=== PATIENT | female | born 1945 | race Caucasian/White ===

== ENCOUNTER 2017-04-18 10:49 | Day surgery (SDC) | payer MEDICARE, BC ==
[~2017-04-18 10:49] MED LIST: ACETAMINOPHEN 325 MG TABLET PO PRN; ACETYLCHOLINE CHLORIDE 20 DROP KIT IO PRN; BUPIVACAINE HCL/PF 30 ML VIAL IJ PRN; CYCLOPENTOLATE HCL 20 DROP BTL LEFTEYE PRN; DEXTROSE 5%-0.5 NORMAL SALINE 1,000 ML IV PRN; EPINEPHrine 1 MG/ML AMPUL IO PRN; HYALURONATE SODIUM 0.4 ML DISP.SYRIN IO PRN; HYALURONATE SODIUM 0.85 ML DISP.SYRIN IO PRN; LIDOCAINE HCL/PF 200 MG/5 ML AMPUL TP PRN; LIDOCAINE HCL/PF 5 ML VIAL IO PRN; NORMAL SALINE 3 ML BOX IV PRN; PHENYLEPHRINE HCL 50 DROP BTL LEFTEYE PRN; TETRACAINE HCL 150 DROP BTL OP PRN; TROPICAMIDE 150 DROP BTL LEFTEYE PRN
[2017-04-18 15:41] VITALS: BP 133/59
== END 2017-04-18 10:50 | disposition home or self-care (01) ==
LOC: AMB 10:49
PROVIDERS: ATTEND Ophthalmology
PROC: 08RK3JZ Replacement of Left Lens with Synthetic Substitute, Percutaneous Approach (ICD-10-PCS; principal; 2017-04-18 12:00)
DX: H26.8 Other specified cataract (principal); I10 Essential (primary) hypertension; E78.00 Pure hypercholesterolemia, unspecified; M19.90 Unspecified osteoarthritis, unspecified site; E66.9 Obesity, unspecified; Z85.3 Personal history of malignant neoplasm of breast; Z68.21 Body mass index [BMI] 21.0-21.9, adult

== ENCOUNTER 2017-05-02 11:33 | Day surgery (SDC) | payer MEDICARE, BC ==
[~2017-05-02 11:33] MED LIST changes: -CYCLOPENTOLATE HCL 20 DROP BTL LEFTEYE PRN; +CYCLOPENTOLATE HCL 20 DROP BTL RIGHTEYE PRN; -PHENYLEPHRINE HCL 50 DROP BTL LEFTEYE PRN; -TROPICAMIDE 150 DROP BTL LEFTEYE PRN
[2017-05-02] MEDS: TROPICAMIDE 150 DROP BTL RIGHTEYE PRN ×3 (12:24→12:59)
[2017-05-02] MEDS: PHENYLEPHRINE HCL 50 DROP BTL RIGHTEYE PRN ×3 (12:24→12:59)
[2017-05-02] MEDS ORDERED: DEXTROSE 5%-0.5 NORMAL SALINE 1,000 ML IV ONE (12:31)
[2017-05-02 14:57] VITALS: BP 107/60
== END 2017-05-02 11:34 | disposition home or self-care (01) ==
LOC: AMB 11:33
PROVIDERS: ATTEND Ophthalmology
PROC: 08RJ3JZ Replacement of Right Lens with Synthetic Substitute, Percutaneous Approach (ICD-10-PCS; principal; 2017-05-02 12:45)
DX: H26.8 Other specified cataract (principal); I10 Essential (primary) hypertension; E78.00 Pure hypercholesterolemia, unspecified; E66.9 Obesity, unspecified; Z68.21 Body mass index [BMI] 21.0-21.9, adult